=== PATIENT | female | born 1980 | race African-American/Black ===

== ENCOUNTER 2023-05-28 21:19 | Emergency (ER) | payer MEDICAID, OTHER ==
[~2023-05-28] VITALS: Ht 157.5 cm; Wt 72.0 kg
[~2023-05-28 21:19] MED LIST: OXYC-100
[2023-05-28 22:19] VITALS: BP 152/108; PULSE 98; RESP 14; TEMP 98.7; O2SAT 100
== END 2023-05-29 02:40 | disposition left against medical advice (07) ==
LOC: ER 21:19
DX: R10.2 Pelvic and perineal pain (principal); Z53.21 Procedure and treatment not carried out due to patient leaving prior to being seen by health care provider
CPT/HCPCS: 99281